=== PATIENT | female | born 1930 | race Two or more races ===

== ENCOUNTER 2018-11-29 16:10 | Inpatient (IN) | payer MEDICAID, MEDICARE, OTHER ==
[~2018-11-29] VITALS: Ht 149.9 cm; Wt 47.6 kg
--- NOTE | 2018-11-29 16:40 | NUR ---
PATIENT BIB FAMILY FOR PSYCH EVAL. FAMILY STS OUT WANDERING THE STREETS, AGITATION. ON ROOM AIR, BREATHING EVENLY AND UNLABORED. KEPT COMFORTABLE, WILL CONTINUE TO MONITOR ACCORDINGLY.
--- NOTE | 2018-11-29 16:46 | NUR ---
urine collected and sent to lab
[2018-11-29 16:50] LABS: BASOPHILS # (AUTO) 0.1 /CMM (0.0-0.2); BASOPHILS % (AUTO) 1.2 % (0.0-2.0); EOSINOPHILS % (AUTO) 1.9 % (0.0-6.0); HEMATOCRIT 36 % (33-45); HEMOGLOBIN 11.8 g/dL (11.5-14.8); LYMPHOCYTES # (AUTO) 0.6 /CMM (0.8-4.8); LYMPHOCYTES % (AUTO) 10.6 % (20.0-44.0); MEAN CORPUSCULAR HGB CONC 33 g/dl (31.0-36.0); MEAN CORPUSCULAR VOLUME 104 fL (82-100); MONOCYTES # (AUTO) 0.4 /CMM (0.1-1.30); MONOCYTES % (AUTO) 7.7 % (2.0-12.0); NEUTROPHILS # (AUTO) 4.4 /CMM (1.8-8.9); NEUTROPHILS % (AUTO) 78.6 % (43.0-81.0); PLATELET COUNT (AUTO) 197 /CMM (150-450); RED BLOOD CELL COUNT(AUTO) 3.41 MIL/uL (4.0-5.2); WHITE BLOOD COUNT (AUTO) 5.6 K/uL (4.3-11.0)
[2018-11-29 16:53] LABS: APPEARANCE,URINE Clear (CLEAR); BILIRUBIN,URINE SMALL (NEGATIVE); BLOOD, URINE Trace-intact Ery/uL (NEGATIVE); COLOR,URINE Dark (YELLOW); KETONES,URINE Trace (NEGATIVE); LEUKOCYTE ESTERASE ,URINE Trace (NEGATIVE); NITRITE, URINE Positive (NEGATIVE); PH,URINE 5.5 (5.0-8.0); PROTEIN,URINE 30 mg/dl (NEGATIVE); UGLUCOSE Negative (NEGATIVE)
[2018-11-29] MEDS ORDERED: MEMA10TA21 PO (16:53)
[2018-11-29] MEDS ORDERED: DIVA125C5 PO (16:53)
[2018-11-29] MEDS ORDERED: QUET25TA PO (16:53)
[2018-11-29] MEDS ORDERED: FELO10TA3 PO (16:53)
[2018-11-29] MEDS ORDERED: ATOR10TA PO (16:53)
[2018-11-29] MEDS ORDERED: ASPI1CPM7 PO (16:53)
[2018-11-29] MEDS: AGGRENOX(ASA/DIPYRIDAMOLE) 1 CAP CPMP.12HR PO SCH (17:00)
[2018-11-29] MEDS: MEMANTINE HCL 5 MG TABLET PO SCH (17:00)
[2018-11-29 17:06] LABS: ALANINE AMINOTRANSFERASE 18 U/L (12-78); ALBUMIN 3.7 g/dL (3.4-5.0); ALCOHOL, BLOOD < 3 mg/dL (0-0); ALKALINE PHOSPHATASE 66 U/L (46-116); ASPARTATE AMINOTRANSFERASE 17 U/L (15-37); BILIRUBIN,DIRECT 0.1 mg/dL (0.0-0.2); BILIRUBIN,TOTAL 0.4 mg/dL (0.2-1.0); CALCIUM, SERUM 9.1 mg/dL (8.5-10.1); CARBON DIOXIDE 28 mmol/L (21-32); CHLORIDE 105 mmol/L (98-107); CREATININE 1.9 mg/dL (0.6-1.3); GLUCOSE 125 mg/dL (74-106); POTASSIUM 4.5 mmol/L (3.5-5.1); SODIUM SERUM 141 mmol/L (136-145); TOTAL PROTEIN, SERUM 7.1 g/dL (6.4-8.2); UREA NITROGEN, BLOOD 59 mg/dL (7-18)
[2018-11-29 17:07] LABS: ACETAMINOPHEN < 2 ug/ml (10-30); SALICYLATE 0.7 mg/dL (2.8-20.0)
--- NOTE | 2018-11-29 17:13 | NUR ---
CALLED SECURITIES SUPERVISOR SHEET HEATER AND LEFT A MESSAGE. AWAIT HIS CALL BACK
--- NOTE | 2018-11-29 17:16 | NUR ---
INDUSTRIAL SAFETY ENGINEER COGENERATION OPERATOR ETA 60 MIN
[2018-11-29 17:28] LABS: BACTERIA,URINE 3+ /HPF (None Seen); SQUAMOUS EPITHELIAL CELL,UR Few /HPF (None Seen)
[2018-11-29] MEDS ORDERED: IV NS 0.9% 1,000 ML BAG IV ONE (17:30)
--- NOTE | 2018-11-29 18:37 | NUR ---
JOANIE LCWS ON SITE
--- NOTE | 2018-11-29 20:34 | NUR ---
Patient discharged to home in stable condition. Written and verbal after care instructions given. Patient verbalizes understanding of instruction.
--- NOTE | 2018-11-29 21:00 | NUR ---
RN GPS NOTES: IVAN FLOOD FOR 1699 NOT GIVEN , PT. TRANSFER FROM ER, TO FLOOR AT 2029, WILL CONTINUITY WITH CARE.
[2018-11-29] MEDS ORDERED: MAGNESIUM HYDROXIDE 30 ML UDC PO PRN (22:00)
[2018-11-29] MEDS ORDERED: BLOOD SUGAR DIAGNOSTIC 1 EACH STRIP IN ONE (22:00)
[2018-11-29] MEDS ORDERED: ACETAMINOPHEN 325 MG TABLET PO PRN (22:00)
[2018-11-29] MEDS ORDERED: MAG HYDROX/AL HYDROX/SIMETH 30 ML UDC PO PRN (22:00)
[2018-11-29 23:49] VITALS: BP 135/70
--- NOTE | 2018-11-30 00:17 | NUR ---
ADMISSION NOTES: ADMITTED THIS 88Y/O FEMALE PATIENT ADMIT FROM [facility] ER/ INTALLIY FROM HOME , PT ADMITTED TO GPS ON 5150 GRAVELY DISABLE , DANGER TO OTHERS PER HOLD, WANDERING,AGITATED, THREATEN DAUGHTER WITH STICK, UNABLE TO CARE HER SELF ,UPON FACE TO FACE ASSESSMENT PATIENT IS A&O X ,1 CONFUSED, DISORGNIZED, ANXIOUS, FLAT AFFECT, PARNOID, DISHELVED ,EASILY GETS AGITATED,, PT. IS POOR HISTORIAN, POOR INSIGHT ,POOR JUDGEMENT , PT. REFUSED TO TAKE SHOWER AT THIS TIME , PT. REFUSED TO SIGNS ADMISSION CONSENT PAPERS , DUE TO MENTAL STATUS , PT. REFUSED TO CHECK INTIALLY BLOOD SUGAR, PER PT. I AM NOT DIABETIC, I DONT WANTS CHECK AT THIS TIME , ENCOURAGED, EXPLAINED RISKS AND BENEFITS STILL REFUSED , AWARE AND NOTIFIED OF THE ADMISSION, BELONGINGS CONTRABAND WERE DONE , NURSING ASSESSMENT DONE ,PT. RIGHTS DISCUSS BY MED AIDE , PROVIDE THE PT. WITH HANDBOOK, AND MEDICATIONS GUIDE, ENVIRONMENTAL SAFETY CHECK DONE, ENCOURAGED PT. VERBALIZED ANY FEELING CONCERN TO STAFF, ORIENT TO UNIT POLICY, NO ACUTE DISTRESS NOTED,VITAL SIGNS WNL ,DENIES ANY PAIN AT THIS TIME ,WILL CONTINUE TO MONITOR FOR Q15 SAFETY AND BEHAVIOR.
[2018-11-30 08:00] VITALS: BP 157/75
[2018-11-30] MEDS: AMLODIPINE BESYLATE 5 MG TABLET PO SCH ×2 (08:12→09:00)
[2018-11-30] MEDS: CEPHALEXIN MONOHYDRATE 500 MG CAPSULE PO SCH ×3 (08:12→17:35)
[2018-11-30] MEDS: ATORVASTATIN 10 MG TABLET PO SCH ×2 (08:12→09:00)
[2018-11-30] MEDS: MEMANTINE HCL 5 MG TABLET PO SCH ×3 (08:12→17:35)
[2018-11-30] MEDS: AGGRENOX(ASA/DIPYRIDAMOLE) 1 CAP CPMP.12HR PO SCH ×2 (09:00→17:35)
--- NOTE | 2018-11-30 09:56 | NUR ---
GPS RN NOTE; PT IN THE ROOM AMBULATORY, CONFUSED AT TIMES , ARGUMENTATIVE. PT REFUSED ALL AM MEDICATIONS OFFEREDX3 PT CONTINUE REFUSING, PT STATED"I DONT WANT TO TAKE MEDICATIONS" WILL CONTINUE MONITORING .
[2018-11-30 15:59] VITALS: BP 135/77
[2018-11-30 19:55] VITALS: BP 143/87
[2018-11-30] MEDS: risperiDONE 1 MG TABLET PO SCH (20:59)
[2018-11-30] MEDS: RIVASTIGMINE TARTRATE 1.5 MG CAPSULE PO SCH (20:59)
[2018-11-30] MEDS ORDERED: DIVALPROEX SODIUM 250 MG TABLET.DR PO SCH (21:00)
[2018-11-30] MEDS: LORAZEPAM 0.5 MG TABLET PO PRN (23:26)
--- NOTE | 2018-11-30 23:26 | NUR ---
GPS RN NOTE; PT BEHAVIOR VERY UNCOOPERTIVE , CONFUSED , PARANOID , BOTHERING ROOM MATE YELLING SCREAMING, HYPERVERBAL , GOING TO ANOTHER PATIENTS ROOM , PT.NOT STAYING IN HER BED AND PT. TRANSFER TO BONY CHAIR, ATIVAN 0.5 MG PO PRN GIVEN, WILL CONTINUE MONITOR .
--- NOTE | 2018-12-01 04:14 | NUR ---
RN NOTES: PT. REFUSED TO PROVIDE URINE SPECIMEN , PT. WAS VERY UNCOOPERATIVE, CONFUSED , FLUSHING IN TOILET, WILL CONTINUITY WITH CARE.
[2018-12-01 07:25] LABS: BASOPHILS % (AUTO) 0.4 % (0.0-2.0); EOSINOPHILS % (AUTO) 1.2 % (0.0-6.0); HEMATOCRIT 36 % (33-45); HEMOGLOBIN 11.8 g/dL (11.5-14.8); LYMPHOCYTES # (AUTO) 0.6 /CMM (0.8-4.8); LYMPHOCYTES % (AUTO) 13.2 % (20.0-44.0); MEAN CORPUSCULAR HGB CONC 33 g/dl (31.0-36.0); MEAN CORPUSCULAR VOLUME 104 fL (82-100); MONOCYTES # (AUTO) 0.5 /CMM (0.1-1.30); MONOCYTES % (AUTO) 9.4 % (2.0-12.0); NEUTROPHILS # (AUTO) 3.7 /CMM (1.8-8.9); NEUTROPHILS % (AUTO) 75.8 % (43.0-81.0); PLATELET COUNT (AUTO) 182 /CMM (150-450); RED BLOOD CELL COUNT(AUTO) 3.43 MIL/uL (4.0-5.2); WHITE BLOOD COUNT (AUTO) 4.9 K/uL (4.3-11.0)
[2018-12-01 07:44] LABS: CHOLESTEROL 174 mg/dL (<200); HDL CHOLESTEROL 74 mg/dL (40-60); LDL 78 mg/dL (0-99); TRIGLYCERIDES 79 mg/dL (30-150)
[2018-12-01 08:00] VITALS: BP 156/81
[2018-12-01 08:14] LABS: ALBUMIN 3.9 g/dL (3.4-5.0); BILIRUBIN,TOTAL 0.5 mg/dL (0.2-1.0); CALCIUM, SERUM 9.2 mg/dL (8.5-10.1); CREATININE 1.2 mg/dL (0.6-1.3); MAGNESIUM 1.9 mg/dL (1.8-2.4); PHOSPHORUS 2.6 mg/dL (2.5-4.9); POTASSIUM 4.2 mmol/L (3.5-5.1); TOTAL PROTEIN, SERUM 7.5 g/dL (6.4-8.2)
[2018-12-01] MEDS: CEPHALEXIN MONOHYDRATE 500 MG CAPSULE PO SCH ×2 (08:22→16:30)
[2018-12-01] MEDS: AMLODIPINE BESYLATE 5 MG TABLET PO SCH (08:22)
[2018-12-01] MEDS: ATORVASTATIN 10 MG TABLET PO SCH (08:22)
[2018-12-01] MEDS: RIVASTIGMINE TARTRATE 1.5 MG CAPSULE PO SCH ×2 (08:22→20:18)
[2018-12-01] MEDS: risperiDONE 1 MG TABLET PO SCH ×2 (08:22→20:18)
--- NOTE | 2018-12-01 08:52 | NUR ---
UR NOTE: SW received a call from Alan outpatient case manager with [facility] [phone] who stated pt was authorized 2 additional days with review due on 12/03/18.
[2018-12-01] MEDS: AGGRENOX(ASA/DIPYRIDAMOLE) 1 CAP CPMP.12HR PO SCH ×2 (09:10→16:30)
[2018-12-01] MEDS: DIVALPROEX SODIUM 250 MG TABLET.DR PO SCH ×3 (09:10→16:30)
--- NOTE | 2018-12-01 10:00 | NUR ---
EDSON contacted pts daughter Denzel [phone] to discuss pts discharge and treatment plan. Per daughter she stated that she would love for pt to return home with other daughter Bonita, however, based on pts previous behavior she is unsure what the discharge plan will be at this moment. She stated that she wants pt to be stable before making a decision. EDSON explained that pts hospitalization is time sensitive as pts HMO insurance has only authorized 2 additional days and informed her that as of now pt is not showing aggression. EDSON explained that a decision needs to be made before 12/03/18. Daughter understood and stated that she has already spoken with psychiatrist Dr. Jameson who informed her pts medications will be changed. Daughter stated that she is hopeful that the new medication change will show improvements in pts behavior and thus being able to take her home. In the meantime EDSON informed her that she would refer daughter to [facility] Address: [address] [place] [address] to discuss placement options. Daughter agreed. EDSON also educated daughter on disenrollment of current HMO insurance to Medicare, daughter stated that she will begin disenrollment process once pt is out of the hospital and stable.
--- NOTE | 2018-12-01 11:21 | NUR ---
INITIAL DISCHARGE PLAN: Per daughter Denzel [phone], patient currently lives at home [[address] [place] [address]] with her family - her daughter Bonita Bethea [[phone]], son-in-law, and patient's son Michael. Per daughter Denzel Troy [[phone]], she is unsure what pts discharge plan will be at this moment as she stated there are many factors to consider. Per daughter she stated that she wants to make sure pt is stable before making a decision. Press Operator [employer] will continue to meet with patient, and collaborate with patient, family, and MD on safe and proper discharge.
--- NOTE | 2018-12-01 15:45 | NUR ---
GROUP NOTE: SW encouraged pt to participate in group on this present day discussing "discharge planning." Pt unable to participate due to cognitive impairment and only being alert to self and unable to engage in conversation due to confusion, disorganized thought process, and disorientation.
[2018-12-01 16:00] VITALS: BP 146/65
[2018-12-01 20:34] VITALS: BP 148/80
--- NOTE | 2018-12-01 21:30 | NUR ---
RN NOTES : COLLECTED URINE SPECIMEN AND SEND OUT TO THE LAB.
[2018-12-01] MEDS: LORAZEPAM 0.5 MG TABLET PO PRN (21:47)
[2018-12-01 22:10] LABS: APPEARANCE,URINE CLEAR (CLEAR); BILIRUBIN,URINE SMALL (NEGATIVE); BLOOD, URINE NEGATIVE Ery/uL (NEGATIVE); COLOR,URINE YELLOW (YELLOW); KETONES,URINE TRACE (NEGATIVE); LEUKOCYTE ESTERASE ,URINE NEGATIVE (NEGATIVE); NITRITE, URINE NEGATIVE (NEGATIVE); PROTEIN,URINE NEGATIVE (NEGATIVE); UGLUCOSE NEGATIVE (NEGATIVE); UROBILINOGEN,URINE 0.2 EU/dL (0.2)
[2018-12-01 22:41] LABS: BACTERIA,URINE Few /HPF (None Seen); RBC,URINE 0-2 /HPF (0-2); SQUAMOUS EPITHELIAL CELL,UR Few /HPF (None Seen); WBC,URINE 21-50 /HPF (0-3)
[2018-12-01 22:42] LABS: EOSINOPHIL,URINE Rare
[2018-12-01 23:18] LABS: URINE TOTAL PROTEIN 31.2 mg/dL (0-11.9)
[2018-12-02 08:00] VITALS: BP 137/91
[2018-12-02] MEDS: AMLODIPINE BESYLATE 5 MG TABLET PO SCH (08:49)
[2018-12-02] MEDS: RIVASTIGMINE TARTRATE 1.5 MG CAPSULE PO SCH ×2 (08:49→20:21)
[2018-12-02] MEDS: ATORVASTATIN 10 MG TABLET PO SCH (08:50)
[2018-12-02] MEDS: risperiDONE 1 MG TABLET PO SCH ×2 (08:50→20:21)
[2018-12-02] MEDS: CEPHALEXIN MONOHYDRATE 500 MG CAPSULE PO SCH ×2 (08:50→16:37)
[2018-12-02] MEDS: DIVALPROEX SODIUM 250 MG TABLET.DR PO SCH ×3 (08:50→16:37)
[2018-12-02] MEDS: AGGRENOX(ASA/DIPYRIDAMOLE) 1 CAP CPMP.12HR PO SCH ×2 (09:17→16:37)
[2018-12-02 13:10] LABS: PTH, INTACT 61 pg/mL (15-65)
--- NOTE | 2018-12-02 15:40 | NUR ---
GROUP NOTE: SW encouraged pt to participate in group on this present day discussing "positive coping skills." Pt unable to participate due to cognitive impairment and only being alert to self and unable to engage in conversation due to confusion, disorganized thought process, and disorientation.
[2018-12-02 16:00] VITALS: BP 103/60
[2018-12-02 20:30] VITALS: BP 108/67
[2018-12-02] MEDS: TEMAZEPAM 7.5 MG CAPSULE PO PRN (21:59)
[2018-12-03 06:06] LABS: *SPE A/G RATIO 1.2 (0.7-1.7); *SPE ALBUMIN 3.7 g/dL (2.9-4.4); *SPE ALPHA-1-GLOBULIN 0.2 g/dL (0.0-0.4); *SPE ALPHA-2-GLOBULIN 0.9 g/dL (0.4-1.0); *SPE M-SPIKE Not Observed g/dL (Not Observed); *SPEGAMMA GLOBULIN 0.9 g/dL (0.4-1.8)
[2018-12-03 08:00] VITALS: BP 137/93
--- NOTE | 2018-12-03 08:31 | NUR ---
UR NOTE: EDSON left clinical review via voicemail with Alan business case analyst with N [phone].
[2018-12-03] MEDS: ATORVASTATIN 10 MG TABLET PO SCH (08:36)
[2018-12-03] MEDS: CEPHALEXIN MONOHYDRATE 500 MG CAPSULE PO SCH ×2 (08:36→16:41)
[2018-12-03] MEDS: AMLODIPINE BESYLATE 5 MG TABLET PO SCH (08:36)
[2018-12-03] MEDS: RIVASTIGMINE TARTRATE 1.5 MG CAPSULE PO SCH ×2 (08:36→20:12)
[2018-12-03] MEDS: DIVALPROEX SODIUM 250 MG TABLET.DR PO SCH ×3 (08:36→16:40)
[2018-12-03] MEDS: risperiDONE 1 MG TABLET PO SCH ×2 (08:37→20:12)
[2018-12-03] MEDS: AGGRENOX(ASA/DIPYRIDAMOLE) 1 CAP CPMP.12HR PO SCH ×2 (09:05→16:40)
--- NOTE | 2018-12-03 09:46 | NUR ---
UR NOTE: SW received a call from Alan classification case manager with [facility] [phone] who stated pt was authorized 1 additional days with review due on 12/04/18.
--- NOTE | 2018-12-03 09:47 | NUR ---
EDSON contacted pts daughter Denzel [phone] to discuss pts discharge plan. EDSON informed her that psychiatrist has ordered discharge for Saturday12/05/18 and that [facility] has authorized 1 additional day. Daughter understood and stated that she is currently looking at [facility] Address: [address] [place] [address] Assisted Living and that she was unsure if pt will be discharged there or to daughters home in [place]. Daughter requested Physicians Report to completed in case she decides to discharge pt to the assisted lciign on Saturday. EDSON informed her that she would have pts nurse and facilities maintenance manager complete the form and will be placed in pts chart. EDSON also provided daughter with Dr. Jameson's contacts number as she stated she needs to discuss pts treatment before making a decision as to where she will be discharged to on Saturday.
--- NOTE | 2018-12-03 15:59 | NUR ---
Group Note: SW encouraged pt to participate in group on 12/03/18 at 2pm discussing discharge planning. Pt unable to participate due to cognitive impairment and only being alert to self and unable to engage in conversation due to confusion, disorganized thought process, and disorientation.
[2018-12-03 16:00] VITALS: BP 118/66
[2018-12-03 20:30] VITALS: BP 113/80
[2018-12-03] MEDS: TEMAZEPAM 7.5 MG CAPSULE PO PRN (21:34)
[2018-12-04 08:00] VITALS: BP 135/72
--- NOTE | 2018-12-04 08:32 | NUR ---
EDSON faxed clinicals and physicians report to Shane, sap basis administrator at [facility] Address: [address], [place] [address] F: [phone].
[2018-12-04] MEDS: CEPHALEXIN MONOHYDRATE 500 MG CAPSULE PO SCH ×2 (09:00→16:33)
[2018-12-04] MEDS: RIVASTIGMINE TARTRATE 1.5 MG CAPSULE PO SCH ×2 (09:00→20:16)
[2018-12-04] MEDS: ATORVASTATIN 10 MG TABLET PO SCH (09:00)
[2018-12-04] MEDS: AMLODIPINE BESYLATE 5 MG TABLET PO SCH (09:00)
[2018-12-04] MEDS: DIVALPROEX SODIUM 250 MG TABLET.DR PO SCH ×3 (09:00→16:33)
[2018-12-04] MEDS: risperiDONE 1 MG TABLET PO SCH ×2 (09:01→20:17)
[2018-12-04] MEDS: AGGRENOX(ASA/DIPYRIDAMOLE) 1 CAP CPMP.12HR PO SCH ×2 (09:01→16:33)
--- NOTE | 2018-12-04 10:17 | NUR ---
EDSON contacted Shane, mainframe systems administrator at [facility] Address: [address] [place] [address] and left a voicemail for callback.
--- NOTE | 2018-12-04 10:21 | NUR ---
SW contacted pts daughter Denzel [phone] and left a voicemail for callback.
--- NOTE | 2018-12-04 10:53 | NUR ---
EDSON contacted pts daughter Bonita [phone] to coordinate discharge for tomorrow 12/05/18 and left a voicemail for callback.
--- NOTE | 2018-12-04 11:45 | NUR ---
SW met with Shane, revenue cycle administrator at [facility] Address: [address] [place] [address] who came to evaluate pt.
--- NOTE | 2018-12-04 11:46 | NUR ---
EDSON contacted pts daughter Denzel [phone] and left a voicemail for callback to coordinate discharge and also to inform her Shane, from [facility] came to assess pt.
--- NOTE | 2018-12-04 12:01 | NUR ---
SW received a call from pts daughter Denzel [phone] stating that she is very overwhelmed with having to make a decision and plan for pts discharge and began crying. SW reassured daughter that [facility] is the best discharge plan, daughter agreed and stated that she will need transportation arranged as she and her sister are unable to transport pt to the assisted living due to it being too emotional for them. SW stated that she would coordinate discharge and transportation with Shane, from [facility] and daughter agreed.
--- NOTE | 2018-12-04 12:11 | NUR ---
EDSON contacted Shane, safety administrator at [facility] Address: [address] [place] [address] to inform her pts daughter has agreed with discharge to her facility and also informed her transportation with be needed. Shane stated that she will be able to arrange transportation and will contact daughter to finalize pts transfer. Shane will contact EDSON to coordinate discharge for Saturday12/05/18.
--- NOTE | 2018-12-04 15:55 | NUR ---
Group Note: SW encouraged pt to participate in group on 12/04/18 at 2pm discussing social supports. Pt unable to participate due to cognitive impairment and only being alert to self and unable to engage in conversation due to confusion, disorganized thought process, and disorientation.
[2018-12-04 16:00] VITALS: BP 104/57
[2018-12-04 20:25] VITALS: BP 103/57
[2018-12-04] MEDS: TEMAZEPAM 7.5 MG CAPSULE PO PRN (23:18)
[2018-12-05 07:16] LABS: BASOPHILS % (AUTO) 0.4 % (0.0-2.0); EOSINOPHILS % (AUTO) 3.3 % (0.0-6.0); HEMATOCRIT 33 % (33-45); HEMOGLOBIN 11.2 g/dL (11.5-14.8); LYMPHOCYTES # (AUTO) 0.7 /CMM (0.8-4.8); LYMPHOCYTES % (AUTO) 18.7 % (20.0-44.0); MEAN CORPUSCULAR HGB CONC 34 g/dl (31.0-36.0); MEAN CORPUSCULAR VOLUME 103 fL (82-100); MONOCYTES # (AUTO) 0.4 /CMM (0.1-1.30); MONOCYTES % (AUTO) 9.4 % (2.0-12.0); NEUTROPHILS # (AUTO) 2.6 /CMM (1.8-8.9); NEUTROPHILS % (AUTO) 68.2 % (43.0-81.0); PLATELET COUNT (AUTO) 212 /CMM (150-450); WHITE BLOOD COUNT (AUTO) 3.9 K/uL (4.3-11.0)
[2018-12-05 08:00] VITALS: BP 111/50
[2018-12-05 08:02] LABS: CALCIUM, SERUM 8.7 mg/dL (8.5-10.1); CREATININE 1.3 mg/dL (0.6-1.3); MAGNESIUM 2.1 mg/dL (1.8-2.4); PHOSPHORUS 3.8 mg/dL (2.5-4.9)
[2018-12-05] MEDS: DIVALPROEX SODIUM 250 MG TABLET.DR PO SCH ×2 (08:20→12:48)
[2018-12-05] MEDS: ATORVASTATIN 10 MG TABLET PO SCH (08:20)
[2018-12-05] MEDS: RIVASTIGMINE TARTRATE 1.5 MG CAPSULE PO SCH (08:20)
[2018-12-05] MEDS: risperiDONE 1 MG TABLET PO SCH (08:21)
[2018-12-05 08:22] VITALS: BP 111/50
[2018-12-05] MEDS: AMLODIPINE BESYLATE 5 MG TABLET PO SCH (08:22)
[2018-12-05] MEDS: AGGRENOX(ASA/DIPYRIDAMOLE) 1 CAP CPMP.12HR PO SCH (08:29)
--- NOTE | 2018-12-05 09:22 | NUR ---
DISCHARGE NOTE: Pt will be discharged between 12:00-1:00pm via facility transport to [facility] Address: [address] [place] [address] . Pts daughter Denzel [phone] has been notified and agrees with discharge plan. Pt has a follow up appointment with Psychiatrist: Dr. David Smith [address] [place] [address] on Saturday December 08, 2018 at 8:20am. SW faxed clinicals to his office at . Pt will also follow up with Votator Machine Operator: [facility] Address: [address] [place] [address] . The multidisciplinary exit care form was done, printed, signed, and given to the patient.
--- NOTE | 2018-12-05 13:20 | NUR ---
SCHOOL EXAMINER NOTE: PATIENT IS A 88 Y/O FEMALE DISCHARGED TO [facility] [address] [place] [address] . PATIENT IS IN STABLE CONDITION. VSS. NO ACUTE DISTRESS NOTED. NO COMPLAINTS. COMPLIANT WITH MEDICATION MANAGEMENT. COOPERATIVE WITH PLAN OF CARE. PSYCHIATRIC TREATMENT PLANS MET. MEDICAL TREATMENT PLANS DEFERRED FOR CONTINUAL MONITORING. DENIES SI/HI/AVH AT THE TIME OF DISCHARGE. PATIENT RESISTANT TO SKIN ASSESSMENT. EDUCATED PATIENT ABOUT AFTERCARE WITH COPY PROVIDED. RETURNED PERSONAL BELONGINGS TO PATIENT. MEDICATIONS RECONCILED ALONG WITH PSYCHIATRIC DISCHARGE ORDERS. DISCHARGE PAPERWORK SIGNED. FOR FOLLOW UP WITH PSYCHIATRIST AND BREAD WRAPPER OPERATOR WITHIN 1 WEEK. PATIENT LEFT SO GPS VIA PRIVATE VEHICLE ACCOMPANIED BY ASSISTED LIVING STAFF MEMBER.
--- NOTE | 2018-12-05 14:07 | NUR ---
UR DISCHARGE CLINICAL NOTE: EDSON did live discharge clinical review with Alan case packer with N [phone].
== END 2018-12-05 13:20 | DRG 885 ==
LOC: ER 16:10 → GPS 19:11
PROVIDERS: ADMIT Psychiatry & Neurology Psychiatry; ATTEND Nurse Practitioner Acute Care
DX: F39 Unspecified mood [affective] disorder (principal); N17.0 Acute kidney failure with tubular necrosis; G93.41 Metabolic encephalopathy; N39.0 Urinary tract infection, site not specified; F29 Unspecified psychosis not due to a substance or known physiological condition; B96.20 Unspecified Escherichia coli [E. coli] as the cause of diseases classified elsewhere; E78.5 Hyperlipidemia, unspecified; I10 Essential (primary) hypertension; F03.90 Unspecified dementia, unspecified severity, without behavioral disturbance, psychotic disturbance, mood disturbance, and anxiety; Z91.19 Patient's noncompliance with other medical treatment and regimen
CPT/HCPCS: 36415; 71045-TC; 80048-TC; 80053-TC; 80061-TC; 80076-TC; 80164-TC; 80305; 81000-TC; 82550-TC; 82570-TC; 83735-TC; 83970; 84100-TC; 84155; 84155-TC; 84165; 84300-TC; 85025-TC; 87081-TC; 87086-TC; 87186-TC; G0480; J7030